=== PATIENT | male | born 1970 | race Asian ===

== ENCOUNTER → 2024-09-28 | Outpatient (CLI) | payer BC, SELFPAY ==
[2024-09-28 15:36] LABS: Absolute Neutrophil Count 4.7 X10^3/uL (2.0-7.7); Basophil# 0.04 X10^3/uL; Basophil% 0.6 % (0-1); Eosinophil# 0.16 X10^3/uL; Eosinophils% 2.5 % (0-5); Hemoglobin 17.4 g/dL (13.0-16.5); Mean Corp Hgb Conc 35.5 g/dL (32-36); Mean Corpuscular Hgb 30.9 pg (27.0-32.0); Mean Platelet Vol. 9.5 fl (6.2-12.0); Monocyte# 0.61 X10^3/uL; Monocyte% 9.5 % (0-10); NRBC Flagged by Analyzer 0 % (0-5); Neutrophil % 72.9 % (47-70); Platelet Count 211 K/mm3 (150-450); RBC Distribution Width CV 12.2 % (11.6-14.6); RBC Distribution Width SD 38.4 fl (35.1-43.9); Red Blood Count 5.63 M/mm3 (4.6-6.2); White Blood Count 6.4 K/mm3 (4.4-11.0)
[2024-09-28 16:02] LABS: ALB/GLOB Ratio 1.7 RATIO (0.9-2.4); AST(SGOT) 43 U/L (<=37); Alanine Aminotransfer ALT/SGPT 52 U/L (<=46); Albumin, Serum 4.7 g/dL (3.5-5.0); Alkaline Phosphatase 71 U/L (40-129); Anion Gap 11 (5-15); BUN 18 mg/dL (4-19); BUN/Creat Ratio 16.2 RATIO (10-20); Calcium,Total 9.6 mg/dL (7.6-11.0); Carbon Dioxide 25.8 mmol/L (21.0-32.0); Chloride 101 mmol/L (98-108); Cholesterol 174 mg/dL (<=200); Creatinine, Serum 1.08 mg/dL (0.70-1.20); EST Glomerular Filtration Rate 82 (>60); Globulin 2.7 g/dL (2.2-4.2); Glucose 135 mg/dL (70-99); High Density Lipoprotein 46 mg/dL; Low Density Lipoprotein Calc. 95 mg/dL; Magnesium 2.3 mg/dL (1.5-2.2); Potassium 3.4 mmol/L (3.3-5.1); Protein, Total 7.4 g/dL (5.9-8.4); Sodium Level 138 mmol/L (133-145); Total Bilirubin 0.74 mg/dL (0.00-1.30); Triglycerides 165 mg/dL; Very Low Density Lipoprotein 33 mg/dL (5-40); cholesterol:hdl ratio screen 3.78
[2024-10-02 16:42] LABS: Ferritin 486 ng/mL (37-417); Hepatitis B Surface Antigen Nonreactive (Nonreactive); Hepatitis C Antibody Nonreactive (Nonreactive)
[2024-10-02 16:53] LABS: Iron 139 ug/dL (65-175); Iron Binding Capacity,Total 261 ug/dL (250-450); Iron Binding Capacity,Unsat 122 ug/dL (228-428)
== END | disposition home or self-care (01) ==
LOC: MFPLAB 12:20
PROVIDERS: PCP Family Medicine; Referring Provider Family Medicine; Visit Provider Family Medicine
DX: E78.5 Hyperlipidemia, unspecified (principal); I10 Essential (primary) hypertension
CPT/HCPCS: 36415; 80053; 80061; 82728; 83540; 83550; 83735; 84443; 85025; 86803; 87340

== ENCOUNTER → 2024-10-09 | Outpatient (CLI) | payer BC, SELFPAY ==
[2024-10-09 14:07] LABS: Hepatitis B Surface Antibody REAC
[2024-10-11 05:08] LABS: Transferrin 191 mg/dL (177-329)
== END | disposition home or self-care (01) ==
LOC: MFPLAB 11:10
PROVIDERS: PCP Family Medicine; Referring Provider Family Medicine; Visit Provider Family Medicine
DX: R79.89 Other specified abnormal findings of blood chemistry (principal); R71.8 Other abnormality of red blood cells
CPT/HCPCS: 36415; 84466; 86706

== ENCOUNTER → 2024-12-21 | Outpatient (CLI) | payer BC, SELFPAY ==
--- NOTE | 2024-12-21 08:41 | US_ITS ---
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 Gallbladder: No stones, sludge, wall thickening or tenderness. Common bile duct: Normal measuring 4.1 mm . Pancreas: Obscured by bowel gas. Kidneys: The right kidney measures 9.7 cm 4 cm 4 cm. Renal parenchymal thickness and echotexture is are preserved. Renal cortex measures 1.1 cm the left kidney measures 11.8 cm 4.3 cm 5.2 cm. Renal parenchymal thicknesses and echotextures are preserved. No hydronephrosis. The left renal cortex measures 1.3 cm. Spleen: Normal in size and echotexture measuring it measures 11.2 cm 3.3 cm 3.5 cm. Aorta: Visualized abdominal aorta is of normal size. IVC: Visualized inferior vena cava is unremarkable. Peritoneal Findings: No ascites identified. US/Abdomen Complete IMPRESSION: NORMAL ABDOMINAL ULTRASOUND. Reading Location: [id number]
--- OUTSIDE RECORDS SUMMARY | 2024-12-21 09:08 | XMS RPT_ITS | CCD ---
Author Organization [facility]Sy[facility] Care Team Providers Care It Service Technician Name Role Phone Angel WHITTEN, Dr. Ernesto Calle Primary Care Provider Angel WHITTEN, Dr. Ernesto Calle Attending Provider Angel WHITTEN, Dr. Ernesto Calle Referring Provider Ernesto Ortiz Primary Care Unavailable Ernesto Ortiz Referring Unavailable Ernesto Ortiz Attending Unavailable Ernesto Ortiz Referring Unavailable Ernesto Ortiz Attending Unavailable Ernesto Ortiz Primary Care Unavailable Problems Problem Classification Problem Date Documented Da te Episodic/Chronic Disorders of lipid metabolism (1 source) Hyperlipidemia, unspecified; Translations: [Hyperlipidemia, unspecified] Onset: 10-02-2024 Chronic Other screening for suspected conditions (not mental disorders or infectious disease) (1 source) Other specified abnormal findings of blood chemistry; Translations: [Other specified abnormal findings of blood chemistry] Onset: 10-13-2024 Episodic Results Test Name Value Interpretation Reference Range Facility Transferrinon 10-11-2024 Transferrin [Mass/Vol] 191 mg/dL Normal 177-[address] [facility] Comment on above: Result Comment: Perf ormed at: CB - [facility] [address] [id number] Web Analytics Developer: Shashank Sanchez PhD, Phone: [phone] Performed By: #### L 790.0699, N394.1887, F904.0861, I343.8685, K564.2128 #### [facility] [place], [address] Hepatitis B Surface Antibody on 10-09-2024 HEP B Surf Ab REAC Normal [facility] Comment on above: Result Comment: <8.5 mIU/mL: Non-Reactive 8.5<= x <11.5 mIU/mL: Indeterminate >=11.5 mIU/mL: Reactive Non Reactive: Inconsistent with immunity less than <10 mIU/mL Reactive: Consistent with immunity greater than or equal to 10 mIU/mL Performed By: #### L 3890.6202 #### [facility] [address] [place], [address] Serum hepatitis B virus surf agatha antibody detectionOrdered By: Ernesto Ortiz on 10-09-2024 HBV surface Ab Ql (S) REAC [facility] Comment on above: <8.5 mIU/mL: Non-Nelson ctive8.5<= x <11.5 mIU/mL: Indeterminate>=11.5 mIU/mL: Reactive Non Reactive: Inconsistent with immunity less than <10 mIU/mL Reactive: Consistent with immunity greater than or equal to 10 mIU/mL TransferrinOrdered By: Ernesto Ortiz on 10-09-2024 Transferrin [Mass/Vol] 191 mg/dL 177-[address] [facility] Comment on above: Performed at: [facility] [place] [id number] Director: Shashank Sanchez PhD, Phone: [phone] Ferritinon 10-02-2024 Ferritin [Mass/Vol] 486 ng/mL High 37-417 [facility] Comment on above: Order Comment: ALPA Calle ADD RYLEE KING IBC SERENA TO BLOOD DRAWN 09/28/24 PER Order Date: 08/08/24 Order Info: [id number] - CMP Order Info: [id number] - LIPID Order Info: [id number] - MG Order Info: [id number] - TSH Performed By: #### L 503.6550, L3890.6103, L3890.630, L503.6082 #### [facility] [address], [place], [id number] Hepatitis C Antibodyon 10-02 Hepatitis C Ab Non-Reactive Normal Nonreactive [facility] Comment on above: Order Comment: ALPA Calle ADD HEBSAG HECAB IBC SERENA TO BLOOD DRAWN 09/28/24 PER Order Date: 08/08/24 Order Info: 86-1 - CMP Order Info: [id number] - LIPID Order Info: [id number] - MG Order Info: [id number] - TSH Result Comment: Reac tive: Presumptive evidence of antibodies to HCV. Follow CDC recommendations for supplemental testing. Non-Reactive: Antibodies to HCV were not detected; does not exclude the possibility of exposure to HCV Reactive Results are presumptive evidence of antibodies to HCV. Follow CDC recommendations for supplemental testing. Order confirmation testing: HCV Quant by PCR testing - HCVPCR #[id number] Non Reactive: < 0.8 Equivocal: >/= 0.8 to < 1.0 Reactive: >/= 1.0 The [facility] [place]NOTE 2] requires that a reactive/equivocal HCV antibody result be sent out for confirmation. HCV Quant by PCR testing. Performed By: #### L 503.6550, L3890.6102, L3890.6301, L503.6030 #### [facility] [address] [place], [place], [id number] Iron+Iron Binding Capacityon 10-02-2024 Iron [Mass/Vol] 139 ug/dL Normal 65-175 [facility] Comment on above: Order Comment: [facility]OD [facility]RAWN 09/28/24 PER Order Date: 08/08/24 Order Info: [id number]- - CMP Order Info: - LIPID Order Info: [id number] - MG Order Info: [id number] - TSH Performed By: #### L 503.6550, L3890.6102, L3890.6301, L503.6030 #### [facility] [address] [place], [place], [id number] IRON SATURATION 53.0 Normal 9-55 [facility] Comment on above: Order Comment: ALPA Calle ADD HEBSAG HECAB IBC SERENA TO BLOOD DRAWN 09/28/24 PER Order Date: 08/08/24 Order Info: [id number] - CMP Order Info: [id number] - LIPID Order Info: [id number] - MG Order Info: [id number] - TSH Performed By: #### L 503.6550, L3890.6102, L3890.6301, L503.6030 #### [facility] [address] [place], [address] TIBC 261 ug/dL Normal 250-450 [facility] Comment on above: Order Comment: ALPA Calle ADD HEBSAG HECAB IBC SERENA TO BLOOD DRAWN 09/28/24 PER Order Date: 08/08/24 Order Info: [id number] - CMP Order Info: [id number] - LIPID Order Info: [id number] - MG Order Info: [id number] - TSH Performed By: #### L 503.6550, L3890.6102, L3890.6301, L503.6030 #### [facility] [address] [place], [address] UIBC 122 ug/dL Low 228-428 [facility] Comment on above: Order Comment: ALPA Calle ADD HEBSAG HECAB IBC SERENA TO BLOOD DRAWN 09/28/24 PER Order Date: 08/08/24 Order Info: [id number] - CMP Order Info: - LIPID Order Info: [id number] - MG Order Info: [id number] - TSH Performed By: #### L 503.6550, L3890.6102, L3890.6301, L503.6030 #### [facility] [address] [place], [address] L3890.6102on 10-02-2024 HEP B Surf Ag Non-Reactive Normal Nonreactive [facility] Comment on above: Order Comment: ALPA Calle ADD HEBSAG HECAB IBC SERENA TO BLOOD DRAWN 09/28/24 PER Order Date: 08/08/24 Order Info: [id number]- - CMP Order Info: [id number] - LIPID Order Info: [id number] - MG Order Info: [id number] - TSH Result Comment: Reac tive: Presumptive evidence of HBV. Repeatedly reactive samples must be confirmed using a neutralization test ([employer] HBsAg Confirmatory Test) Non-Reactive: HBsAg not detected; does not exclude the possibility of exposure to HBV Performed By: #### L 503.6579, L3890.6102, L3890.6301, L503.6041 #### [facility] [address] [place], [address] Absolute lymphocyte countOrd ered By: Ernesto Ortiz on 09-28-2024 Lymphocytes Auto (Unsp spec) [#/Vol] 0.90 10*3/uL 0.83-4.51 [facility] Absolute neutrophil countOrd ered By: Ernesto Ortiz on 09-28-2024 Neutrophils (Bld) [#/Vol] 4.7 10*3/uL 2.0-7.7 [facility] Anion gap in Serum or Plasma Ordered By: Ernesto Ortiz on 09-28-2024 Anion gap [Moles/Vol] 11 mmol/L 5-15 [facility] Automated lymphocyte count a s percentage of total leukocytesOrdered By: Ernesto Ortiz on 09-28-2024 Lymphocytes/100 WBC Auto (Unsp spec) 14.0 % Low 19-41 [facility] BUN/creatinine ratioOrdered By: Ernesto Ortiz on 09-28-2024 Urea nitrogen/Creatinine [Mass ratio] 16.2 mg/mg 10-20 [facility] Basophil percentageOrdered B y: Ernesto Ortiz on 09-28-2024 Basophils/100 WBC (Bld) 0.6 % 0-1 [facility] Bilirubin, totalOrdered By: Ernesto Ortiz on 09-28-2024 Bilirubin [Mass/Vol] 0.74 mg/dL 0.00-1.30 [facility] CBC W/Diff, Automatedon 09-13 Absolute Lymph 0.90 X10 3/uL Normal 0.83-4.51 [facility] Comment on above: Order Comment: Order Date: 08/08/24 Order Info: [id number] - CBCD Performed By: #### L 501.9344, L500.4100, L500.4050, L501.5200, L100.0100 #### [facility] [address] [place], [address] Absolute Neut 4.7 X10 3/uL Normal 2.0-7.7 [facility] Comment on above: Order Comment: Order Date: 08/08/24 Order Info: [id number] - CBCD Performed By: #### L 501.9520, L500.4100, L500.4050, L501.5200, L100.0100 #### [facility] [address] [place], [address] Basophils/100 WBC (Bld) 0.6 % Normal 0-1 [facility] Comment on above: Order Comment: Order Date: 08/08/24 Order Info: [id number] - CBCD Performed By: #### L 501.9520, L500.4100, L500.4050, L501.5200, L100.0100 #### [facility] [address] [place], [address] Eosinophils/100 WBC (Bld) 2.5 % Normal 0-5 [facility] Comment on above: Order Comment: Order Date: 08/08/24 Order Info: 0184-1 - CBCD Performed By: #### L 501.9520, L500.4100, L500.4050, L501.5200, L100.0100 #### [facility] [address] [place], [address] Erythrocyte distribution width (RBC) [Ratio] 12.2 % Normal 11.6-14.6 [facility] Comment on above: Order Comment: Order Date: 08/08/24 Order Info: 0184-1 - CBCD Performed By: #### L 501.9520, L500.4100, L500.4050, L501.5200, L100.0100 #### [facility] [address] [place], [address] Hematocrit (Bld) [Volume fraction] 49.0 % Normal 40-54 [facility] Comment on above: Order Comment: Order Date: 08/08/24 Order Info: 0184-1 - CBCD Performed By: #### L 501.9520, L500.4100, L500.4050, L501.5200, L100.0100 #### [facility] [address] [place], [address] Hemoglobin (Bld) [Mass/Vol] 17.4 g/dL High 13.0-16.5 [facility] Comment on above: Order Comment: Order Date: 08/08/24 Order Info: 0184-1 - CBCD Performed By: #### L 501.9520, L500.4100, L500.4050, L501.5200, L100.0100 #### [facility] [address] [place], [address] IG% 0.500 Normal 0.0-0.9 [facility] Comment on above: Order Comment: Order Date: 08/08/24 Order Info: 0184-1 - CBCD Result Comment: IG% - Immature Granulocytes (promyelocytes, myelocytes and metamyelocytes) > 1% indicates that a LEFT SHIFT is Present. Performed By: #### L 501.9520, L500.4100, L500.4050, L501.5200, L100.0100 #### [facility] [address] [place], [address] Lymphocytes/100 WBC (Bld) 14.0 % Low 19-41 [facility] Comment on above: Order Comment: Order Date: 08/08/24 Order Info: 0184-1 - CBCD Performed By: #### L 501.9520, L500.4100, L500.4050, L501.5200, L100.0100 #### [facility] [address] [place], [address] MCH (RBC) [Entitic mass] 30.9 pg Normal 27.0-32.0 [facility] Comment on above: Order Comment: Order Date: 08/08/24 Order Info: 0184-1 - CBCD Performed By: #### L 501.9520, L500.4100, L500.4050, L501.5200, L100.0100 #### [facility] [address] [place], [address] MCHC (RBC) [Mass/Vol] 35.5 g/dL Normal 32-36 [facility] Comment on above: Order Comment: Order Date: 08/08/24 Order Info: 0184-1 - CBCD Performed By: #### L 501.9520, L500.4100, L500.4050, L501.5200, L100.0100 #### [facility] [address] [place], [address] MCV (RBC) [Entitic vol] 87.0 fL Normal 80-94 [facility] Comment on above: Order Comment: Order Date: 08/08/24 Order Info: 0184-1 - CBCD Performed By: #### L 501.9520, L500.4100, L500.4050, L501.5200, L100.0100 #### [facility] [address] [place], [address] Monocytes/100 WBC (Bld) 9.5 % Normal 0-10 [facility] Comment on above: Order Comment: Order Date: 08/08/24 Order Info: 0184-1 - CBCD Performed By: #### L 501.9520, L500.4100, L500.4050, L501.5200, L100.0100 #### [facility] [address] [place], [address] Neutrophils/100 WBC (Bld) 72.9 % High 47-70 [facility] Comment on above: Order Comment: Order Date: 08/08/24 Order Info: 0184-1 - CBCD Performed By: #### L 501.9520, L500.4100, L500.4050, L501.5200, L100.0100 #### [facility] [address] [place], [address] Nucleated RBC (Bld) [#/Vol] 0 10*3/uL Normal 0-5 [facility] Comment on above: Order Comment: Order Date: 08/08/24 Order Info: 0184-1 - CBCD Performed By: #### L 501.9520, L500.4100, L500.4050, L501.5200, L100.0100 #### [facility] [address] [place], [address] Platelet mean volume (Bld) [Entitic vol] 9.5 fL Normal 6.2-12.0 [facility] Comment on above: Order Comment: Order Date: 08/08/24 Order Info: 0184-1 - CBCD Performed By: #### L 501.9520, L500.4100, L500.4050, L501.5200, L100.0100 #### [facility] [address] [place], [address] Platelets (Bld) [#/Vol] 211 10*3/uL Normal 150-450 [facility] Comment on above: Order Comment: Order Date: 08/08/24 Order Info: 0184- - CBCD Performed By: #### L 501.9520, L500.4100, L500.4050, L501.5200, L100.0100 #### [facility] [address] [place], [address] RBC (Bld) [#/Vol] 5.63 10*6/uL Normal 4.6-6.2 [facility] Comment on above: Order Comment: Order Date: 08/08/24 Order Info: 0184-1 - CBCD Performed By: #### L 501.9520, L500.4100, L500.4050, L501.5200, L100.0100 #### [facility] [address] [place], [place], [id number] RDW SD 38.4 fl Normal 35.1-43.9 [facility] Comment on above: Order Comment: Order Date: 08/08/24 Order Info: 0184-1 - CBCD Performed By: #### L 501.9520, L500.4100, L500.4050, L501.5200, L100.0100 #### [facility] [address] [place], [place], [address] WBC (Bld) [#/Vol] 6.4 10*3/uL Normal 4.4-11.[address] [facility] Comment on above: Order Comment: Order Date: 08/08/24 Order Info: 0184-1 - CBCD Performed By: #### L 501.9520, L500.4100, L500.4050, L501.5200, L100.0100 #### [facility] [address] [place], [place], [id number] Calculated very low density lipoprotein (VLDL) cholesterol measurementOrdered By: Ernesto Ortiz on 09-28-2024 Calculated very low density lipoprotein (VLDL) cholesterol measurement 33 mg/dL 5-40 [facility] Carbon dioxide, total [Moles /volume] in Central venous bloodOrdered By: Ernesto Ortiz on 09-28-2024 CO2 [Moles/Vol] 25.8 mmol/L 21.0-32.0 [facility] Chloride assayOrdered By: Cara Ortiz on 09-28-2024 Chloride [Moles/Vol] 101 mmol/L 98-108 [facility] Comprehensive Metabolic Prof ilon 09-28-2024 Albumin [Mass/Vol] 4.7 g/dL Normal 3.5-5.[address] [facility] Comment on above: Order Comment: Order Date: 08/08/24 Order Info: [id number] - CMP Order Info: [id number] - LIPID Order Info: [id number] - MG Order Info: [id number] - TSH Performed By: #### L 501.9520, L500.4100, L500.4050, L501.5200, L100.0100 #### [facility] [address] [place], [address] Albumin/Globulin [Mass ratio] 1.7 {ratio} Normal 0.9-2.4 [facility] Comment on above: Order Comment: Order Date: 08/08/24 Order Info: [id number] - CMP Order Info: [id number] - LIPID Order Info: [id number] - MG Order Info: 3016-3 - TSH Performed By: #### L 501.9520, L500.4100, L500.4050, L501.5200, L100.0100 #### [facility] [address] [place], [address] ALK PHOS 71 U/L Normal 40-129 [facility] Comment on above: Order Comment: Order Date: 08/08/24 Order Info: [id number] - CMP Order Info: [id number] - LIPID Order Info: [id number] - MG Order Info: 3016-3 - TSH Performed By: #### L 501.9520, L500.4100, L500.4050, L501.5200, L100.0100 #### [facility] [address] [place], [address] ALT [Catalytic activity/Vol] 52 U/L High <=46 [facility] Comment on above: Order Comment: Order Date: 08/08/24 Order Info: [id number] - CMP Order Info: [id number] - LIPID Order Info: [id number] - MG Order Info: 3016-3 - TSH Performed By: #### L 501.9520, L500.4100, L500.4050, L501.5200, L100.0100 #### [facility] [address] [place], [address] AST [Catalytic activity/Vol] 43 U/L High <=37 [facility] Comment on above: Order Comment: Order Date: 08/08/24 Order Info: [id number] - CMP Order Info: [id number] - LIPID Order Info: [id number] - MG Order Info: 3015-3 - TSH Performed By: #### L 501.9520, L500.4100, L500.4050, L501.5200, L100.0100 #### [facility] [address] [place], [address] Bilirubin [Mass/Vol] 0.74 mg/dL Normal 0.00-1.30 [facility] Comment on above: Order Comment: Order Date: 08/08/24 Order Info: [id number] - CMP Order Info: [id number] - LIPID Order Info: [id number] - MG Order Info: 3 - TSH Performed By: #### L 501.9520, L500.4100, L500.4050, L501.5200, L100.0100 #### [facility] [address] [place], [address] BUN/CRE 16.2 RATIO Normal 10-20 [facility] Comment on above: Order Comment: Order Date: 08/08/24 Order Info: 0786- - CMP Order Info: [id number] - LIPID Order Info: [id number] - MG Order Info: 3 - TSH Performed By: #### L 501.9520, L500.4100, L500.4050, L501.5200, L100.0100 #### [facility] [address] [place], [address] Calcium [Mass/Vol] 9.6 mg/dL Normal 7.6-11.[address] [facility] Comment on above: Order Comment: Order Date: 08/08/24 Order Info: [id number] - CMP Order Info: [id number] - LIPID Order Info: [id number] - MG Order Info: 3015-3 - TSH Performed By: #### L 501.9520, L500.4100, L500.4050, L501.5200, L100.0100 #### [facility] [address] [place], [place], [address] Chloride [Moles/Vol] 101 mmol/L Normal 98-108 [facility] Comment on above: Order Comment: Order Date: 08/08/24 Order Info: 0786-1 - CMP Order Info: [id number] - LIPID Order Info: [id number] - MG Order Info: 3016-3 - TSH Performed By: #### L 501.9520, L500.4100, L500.4050, L501.5200, L100.0100 #### [facility] [address] [place], [address] CO2 [Moles/Vol] 25.8 mmol/L Normal 21.0-32.0 [facility] Comment on above: Order Comment: Order Date: 08/08/24 Order Info: 785-1 - CMP Order Info: [id number] - LIPID Order Info: [id number] - MG Order Info: 3016-3 - TSH Performed By: #### L 501.9520, L500.4100, L500.4050, L501.5200, L100.0100 #### [facility] [address] [place], [place], [id number] Creatinine [Mass/Vol] 1.08 mg/dL Normal 0.70-1.20 [facility] Comment on above: Order Comment: Order Date: 08/08/24 Order Info: 0786-1 - CMP Order Info: [id number] - LIPID Order Info: [id number] - MG Order Info: 3016-3 - TSH Performed By: #### L 501.9520, L500.4100, L500.4050, L501.5200, L100.0100 #### [facility] [address] [place], [address] GAP 11 Normal 5-15 [facility] Comment on above: Order Comment: Order Date: 08/08/24 Order Info: 0786-1 - CMP Order Info: [id number] - LIPID Order Info: [id number] - MG Order Info: 3016-3 - TSH Performed By: #### L 501.9520, L500.4100, L500.4050, L501.5200, L100.0100 #### [facility] [address] [place], [address] GFR/1.73 sq M.predicted among non-blacks MDRD (S/P/Bld) [Vol rate/Area] 82 mL/min/{1.73_m2} Normal >[address] [facility] Comment on above: Order Comment: Order Date: 08/08/24 Order Info: [id number] - CMP Order Info: [id number] - LIPID Order Info: [id number] - MG Order Info: 3016-3 - TSH Result Comment: mL/m in/1.73m2 CKD-EPI Creatinine Equation (2020) Performed By: #### L 501.9520, L500.4100, L500.4050, L501.5200, L100.0100 #### [facility] [address] [place], [address] Globulin (S) [Mass/Vol] 2.7 g/dL Normal 2.2-4.2 [facility] Comment on above: Order Comment: Order Date: 08/08/24 Order Info: 0786- - CMP Order Info: [id number] - LIPID Order Info: [id number] - MG Order Info: 3016-3 - TSH Performed By: #### L 501.9520, L500.4100, L500.4050, L501.5200, L100.0100 #### [facility] [address] [place], [address] Glucose [Mass/Vol] 135 mg/dL High 70-[address] [facility] Comment on above: Order Comment: Order Date: 08/08/24 Order Info: 0786-1 - CMP Order Info: [id number] - LIPID Order Info: [id number] - MG Order Info: 3016-3 - TSH Performed By: #### L 501.9520, L500.4100, L500.4050, L501.5200, L100.0100 #### [facility] [address] [place], [address] Potassium [Moles/Vol] 3.4 mmol/L Normal 3.3-5.1 [facility] Comment on above: Order Comment: Order Date: 08/08/24 Order Info: 0786-1 - CMP Order Info: [id number] - LIPID Order Info: [id number] - MG Order Info: 3016-3 - TSH Performed By: #### L 501.9520, L500.4100, L500.4050, L501.5200, L100.0100 #### [facility] [address] [place], [address] Sodium [Moles/Vol] 138 mmol/L Normal 133-[address] [facility] Comment on above: Order Comment: Order Date: 08/08/24 Order Info: 07-1 - CMP Order Info: [id number] - LIPID Order Info: [id number] - MG Order Info: 3016-3 - TSH Performed By: #### L 501.9520, L500.4100, L500.4050, L501.5200, L100.0100 #### [facility] [address] [place], [address] T PROT 7.4 g/dL Normal 5.9-8.4 [facility] Comment on above: Order Comment: Order Date: 08/08/24 Order Info: [id number] - CMP Order Info: [id number] - LIPID Order Info: [id number] - MG Order Info: 3016-3 - TSH Performed By: #### L 501.9520, L500.4100, L500.4050, L501.5200, L100.0100 #### [facility] [address] [place], [address] Urea nitrogen [Mass/Vol] 18 mg/dL Normal 4-19 [facility] Comment on above: Order Comment: Order Date: 08/08/24 Order Info: [id number] - CMP Order Info: [id number] - LIPID Order Info: [id number] - MG Order Info: 3016-3 - TSH Performed By: #### L 501.9520, L500.4100, L500.4050, L501.5200, L100.0100 #### [facility] [address] [place], [address] Eosinophil percentageOrdered By: Ernesto Ortiz on 09-28-2024 Eosinophils/100 WBC (Bld) 2.5 % 0-5 [facility] Erythrocyte distribution wid th ratioOrdered By: Ernesto Ortiz on 09-28-2024 Erythrocyte distribution width (RBC) [Ratio] 12.2 % 11.6-14.6 [facility] Erythrocyte distribution wid th standard deviationOrdered By: Ernesto Ortiz on 09-28-2024 Erythrocyte distribution width (RBC) [Ratio] 38.4 fl 35.1-43.9 [facility] Glomerular filtration rate ( GFR) estimation/1.73 sq m using serum, plasma, or whole bOrdered By: Ernesto Ortiz on 09-28-2024 GFR/1.73 sq M.predicted among non-blacks MDRD (S/P/Bld) [Vol rate/Area] 82 mL/min/{1.73_m2} >[address] [facility] Comment on above: mL/min/1.73m2 CKD-EP I Creatinine Equation (2020) Hematocrit Auto (Bld) [Volum e fraction]Ordered By: Ernesto Ortiz on 09-28-2024 Hematocrit (Bld) [Volume fraction] 49.0 % 40-54 [facility] Hemoglobin measurementOrdere d By: Ernesto Ortiz on 09-28-2024 Hemoglobin (Bld) [Mass/Vol] 17.4 g/dL High 13.0-16.5 [facility] Immature granulocytes/100 WB C Auto (Bld)Ordered By: Ernesto Ortiz on 09-28-2024 Immature granulocytes/100 WBC (Bld) 0.500 % 0.0-0.9 [facility] Comment on above: IG% - Immature Granu locytes (promyelocytes, myelocytes and metamyelocytes) > 1% indicates that a LEFT SHIFT is Present. Iron measurement (mass/mass) Ordered By: Ernesto Ortiz on 09-28-2024 Iron (Unsp spec) [Mass/Mass] 139 ug/dL 65-175 [facility] LDL calc ser/plasOrdered By: Ernesto Ortiz on 09-28-2024 Cholesterol in LDL [Mass/Vol] 95 mg/dL [facility] Comment on above: Rgcstcnnwo=841-906 m g/dL & Higher Jzfi=686 mg/dL or greater Laboratory - Chemistry and C hemistry - challengeOrdered By: Ernesto Ortiz on 09-28-2024 AST [Catalytic activity/Vol] 43 U/L High <38 [facility] Laboratory - Microbiology an d Antimicrobial susceptibilityOrdered By: Ernesto Ortiz on 09-28-2024 HBV surface Ag Ql (S) Non-Reactive Nonreactive [facility] Comment on above: Reactive: Presumptiv e evidence of HBV. Repeatedly reactive samples must be confirmed using a neutralization test ([employer] HBsAg Confirmatory Test)Non-Reactive: HBsAg not detected; does not exclude the possibility of exposure to HBV Lipid Profileon 09-28-2024 CHOL:HDL 3.78 Normal [facility] Comment on above: Order Comment: Order Date: 08/08/24 Order Info: [id number] - CMP Order Info: [id number] - LIPID Order Info: [id number] - MG Order Info: [id number] - TSH Performed By: #### L 501.9520, L500.4100, L500.4050, L501.5200, L100.0100 #### [facility] [address] [place], [address] Cholesterol [Mass/Vol] 174 mg/dL Normal <=[address] [facility] Comment on above: Order Comment: Order Date: 08/08/24 Order Info: [id number] - CMP Order Info: [id number] - LIPID Order Info: [id number] - MG Order Info: [id number] - TSH Result Comment: Chol esterol level, Desirable <200 mg/dL Borderline high cholesterol 200-239 mg/dL High cholesterol >=240 mg/dL Recommendations of the NCEP Adult Treatment Panel for the following risk-cutoff thresholds for the [place] population. Performed By: #### L 501.9520, L500.4100, L500.4050, L501.5200, L100.0100 #### [facility] [address] [place], [address] Cholesterol in HDL [Mass/Vol] 46 mg/dL Normal [facility] Comment on above: Order Comment: Order Date: 08/08/24 Order Info: [id number] - CMP Order Info: [id number] - LIPID Order Info: [id number] - MG Order Info: 301-3 - TSH Result Comment: Dina onal Cholesterol Education Program (NCEP) guidelines: <40 mg/dL: Low HDL-cholesterol (major risk factor for CHD) >= 60 mg/dL: High HDL-cholesterol (negative risk factor for CHD) HDL-cholesterol is affected by a number of factors, e.g. smoking, exercise, hormones, sex and age. Performed By: #### L 501.9520, L500.4100, L500.4050, L501.5200, L100.0100 #### [facility] [address] [place], [address] Cholesterol in LDL [Mass/Vol] 95 mg/dL Normal [facility] Comment on above: Order Comment: Order Date: 08/08/24 Order Info: [id number] - CMP Order Info: [id number] - LIPID Order Info: [id number] - MG Order Info: 301-3 - TSH Result Comment: Bord gyqmrd=435-410 mg/dL Higher Qgij=452 mg/dL or greater Performed By: #### L 501.9520, L500.4100, L500.4050, L501.5200, L100.0100 #### [facility] [address] [place], [address] Cholesterol in VLDL [Mass/Vol] 33 mg/dL Normal 5-40 [facility] Comment on above: Order Comment: Order Date: 08/08/24 Order Info: [id number] - CMP Order Info: [id number] - LIPID Order Info: [id number] - MG Order Info: 301-3 - TSH Performed By: #### L 501.9520, L500.4100, L500.4050, L501.5200, L100.0100 #### [facility] [address] [place], [address] Triglyceride [Mass/Vol] 165 mg/dL Normal [facility] Comment on above: Order Comment: Order Date: 08/08/24 Order Info: [id number] - CMP Order Info: [id number] - LIPID Order Info: [id number] - MG Order Info: [id number] - TSH Result Comment: The drugs N-Acetylcysteine and Metamizole may falsely depress this assay. Normal range: <150 mg/dL Borderline High: 150-199 mg/dL High: 200-499 mg/dL Very High: >500 mg/dL Performed By: #### L 501.9520, L500.4100, L500.4050, L501.5200, L100.0100 #### [facility] [address] [place], [address] MCV (mean corpuscular volume ) determinationOrdered By: Ernesto Ortiz on 09-28-2024 MCV (RBC) [Entitic vol] 87.0 fL 80-94 [facility] Magnesiumon 09-28-2024 Magnesium [Mass/Vol] 2.3 mg/dL High 1.5-2.2 [facility] Comment on above: Order Comment: Order Date: 08/08/24 Order Info: [id number] - CMP Order Info: [id number] - LIPID Order Info: [id number] - MG Order Info: [id number] - TSH Performed By: #### L 501.9520, L500.4100, L500.4050, L501.5200, L100.0100 #### [facility] [address] [place], [address] Magnesium measurement (mass/ volume)Ordered By: Ernesto Ortiz on 09-28-2024 Magnesium (Unsp spec) [Mass/Vol] 2.3 mg/dL High 1.5-2.2 [facility] Mean corpuscular hemoglobin (MCH) determinationOrdered By: Ernesto Ortiz on 09-28-2024 MCH (RBC) [Entitic mass] 30.9 pg 27.0-32.0 [facility] Mean corpuscular hemoglobin concentration (MCHC) determinationOrdered By: Ernesto Ortiz on 09-28-2024 MCHC (RBC) [Mass/Vol] 35.5 g/dL 32-36 [facility] Mean platelet volume determi nationOrdered By: Ernesto Ortiz on 09-28-2024 Platelet mean volume (Bld) [Entitic vol] 9.5 fL 6.2-12.0 [facility] Monocyte percentageOrdered B y: Ernesto Ortiz on 09-28-2024 Monocytes/100 WBC (Bld) 9.5 % 0-10 [facility] Neutrophil percentageOrdered By: Ernesto Ortiz on 09-28-2024 Neutrophils/100 WBC (Bld) 72.9 % High 47-70 [facility] No Panel InformationOrdered By: Ernesto Ortiz on 09-28-2024 Unsaturated Iron Binding Capacity 122 ug/dL Low 228-428 [facility] Nucleated red blood cell per centageOrdered By: Ernesto Ortiz on 09-28-2024 Nucleated RBC/100 WBC (Bld) [Ratio] 0 % 0-5 [facility] Platelet countOrdered By: Cara Ortiz on 09-28-2024 Platelets (Bld) [#/Vol] 211 10*3/uL 150-450 [facility] Potassium measurement (mass/ volume)Ordered By: Ernesto Ortiz on 09-28-2024 Potassium (Unsp spec) [Mass/Vol] 3.4 mmol/L 3.3-5.1 [facility] RBC Auto (Bld) [#/Vol]Ordere d By: Ernesto Ortiz on 09-28-2024 RBC (Bld) [#/Vol] 5.63 10*6/uL 4.6-6.2 [facility] Screening total cholesterol/ high density lipoprotein (HDL) cholesterol ratioOrdered By: Ernesto Ortiz on 09-28-2024 Cholesterol.total/Cholest william in HDL [Mass ratio] 3.78 {ratio} [facility] Serum creatinine measurement (mass/volume)Ordered By: Ernesto Ortiz on 09-28-2024 Creatinine [Mass/Vol] 1.08 mg/dL 0.70-1.20 [facility] Serum globulin measurementOr dered By: Ernesto Ortiz on 09-28-2024 Globulin (S) [Mass/Vol] 2.7 g/dL 2.2-4.2 [facility] Serum glucose measurement (m ass/volume)Ordered By: Ernesto Ortiz on 09-28-2024 Glucose [Mass/Vol] 135 mg/dL High 70-[address] [facility] Serum or plasma alanine vega otransferase (ALT) measurementOrdered By: Ernesto Ortiz on 09-28-2024 ALT [Catalytic activity/Vol] 52 U/L High <47 [facility] Serum or plasma albumin sanjay urement (mass/volume)Ordered By: Ernesto Ortiz on 09-28-2024 Albumin [Mass/Vol] 4.7 g/dL 3.5-5.[address] [facility] Serum or plasma albumin/glob ulin mass ratioOrdered By: Ernesto Ortiz on 09-28-2024 Albumin/Globulin [Mass ratio] 1.7 {ratio} 0.9-2.4 [facility] Serum or plasma alkaline jackie sphatase measurementOrdered By: Ernesto Ortiz on 09-28-2024 ALP [Catalytic activity/Vol] 71 U/L 40-129 [facility] Serum or plasma calcium sanjay urement (mass/volume)Ordered By: Ernesto Ortiz on 09-28-2024 Calcium [Mass/Vol] 9.6 mg/dL 7.6-11.[address] [facility] Serum or plasma cholesterol in HDL measurement (mass/volume)Ordered By: Ernesto Ortiz on 09-28-2024 Cholesterol in HDL [Mass/Vol] 46 mg/dL >40 [facility] Comment on above: National Cholesterol Education Program (NCEP) guidelines:<40 mg/dL: Low HDL-cholesterol (major risk factor for CHD)>= 60 mg/dL: High HDL-cholesterol (negative risk factor for CHD)HDL-cholesterol is affected by a number of factors, e.g. smoking, exercise, hormones, sex and age. Serum or plasma cholesterol measurement (mass/volume)Ordered By: Ernesto Ortiz on 09-28-2024 Cholesterol [Mass/Vol] 174 mg/dL <[address] [facility] Comment on above: Cholesterol level, D esirable <200 mg/dLBorderline high cholesterol 200-239 mg/dLHigh cholesterol >=240 mg/dLRecommendations of the NCEP Adult Treatment Panel for the following risk-cutoff thresholds for the [place] population. Serum or plasma ferritin kenyon surement (mass/volume)Ordered By: Ernesto Ortiz on 09-28-2024 Ferritin [Mass/Vol] 486 ng/mL High 37-417 [facility] Serum or plasma iron saturat ion measurement (mass fraction)Ordered By: Ernesto Ortiz on 09-28-2024 Iron saturation [Mass fraction] 53.0 % 9-55 [facility] Serum or plasma urea nitroge n measurement (mass/volume)Ordered By: Ernesto Ortiz on 09-28-2024 Urea nitrogen [Mass/Vol] 18 mg/dL 4-19 [facility] Sodium levelOrdered By: Ernesto Ortiz on 09-28-2024 Sodium [Moles/Vol] 138 mmol/L 133-[address] [facility] TSH DL <= 0.005 mIU/L QnOrde red By: Ernesto Ortiz on 09-28-2024 TSH Qn 1.640 uIU/mL 0.300-4.200 [facility] Thyroid Stim Hormone (TSH)on 09-28-2024 TSH 1.640 uIU/mL Normal 0.300-4.200 [facility] Comment on above: Order Comment: Order Date: 08/08/24 Order Info: [id number] - CMP Order Info: [id number] - LIPID Order Info: [id number] - MG Order Info: [id number] - TSH Performed By: #### L 501.9520, L500.4100, L500.4050, L501.5200, L100.0100 #### [facility] [address] [place], [address] Total proteinOrdered By: Regan Ortiz on 09-28-2024 Protein [Mass/Vol] 7.4 g/dL 5.9-8.[address] [facility] Triglycerides measurementOrd ered By: Ernesto Ortiz on 09-28-2024 Triglyceride [Mass/Vol] 165 mg/dL <199 [facility] Comment on above: The drugs N-Acetylcy steine and Metamizole may falsely depress this assay. Normal range: <150 mg/dLBorderline High: 150-199 mg/dLHigh: 200-499 mg/dLVery High: >500 mg/dL White blood cell (WBC) count Ordered By: Ernesto Ortiz on 09-28-2024 WBC (Bld) [#/Vol] 6.4 10*3/uL 4.4-11.[address] [facility] Encounters Encounter Date Encounter Type Care Provider Facility Start: 10-09-2024 End: 10-09-[address] Ernesto Ortiz MD Work Phone: [facility] Work Phone: Start: 10-09-2024 End: 10-09-[address] Ernesto Ortiz MD -Laboratory [facility] [place] Start: 10-09-2024 End: 10-09-2024 ambulatory Ernesto Ortiz Facility:[facility] Start: 09-28-2024 End: 09-28-[address] Ernesto Ortiz MD Work Phone: [facility] Work Phone: Start: 09-28-2024 End: 09-28-[address] Ernesto Ortiz MD -Laboratory [facility] [place] Start: 09-28-2024 End: 09-28-2024 ambulatory Ernesto Ortiz Facility:[facility] Procedures Date Procedure Procedure Detail Performing Clinician Start: 09-28-2024 Hep[address] C antibody measurement Dr. Ernesto Ortiz MD Work Phone: Comment on above: Reactive: Presumptiv e evidence of antibodies to HCV. Follow CDC recommendations for supplemental testing.Non-Reactive: Antibodies to HCV were not detected; does not exclude the possibility of exposure to HCVReactive Results are presumptive evidence of antibodies to HCV. Follow CDC recommendations for supplemental testing.Order confirmation testing: HCV Quant by PCR testing - HCVPCR #[id number] Non Reactive: < 0.8 Equivocal: >/= 0.8 to < 1.0 Reactive: >/= 1.0The CDC requires that a reactive/equivocal HCV antibody result be sent out for confirmation. HCV Quant by PCR testing. Start: 09-28-2024 Total iron binding c apacity measurement Dr. Ernesto Ortiz MD Work Phone: Payers Date Payer Category Payer Self-pay 2024 Unknown [id number] Unknown [id number] Unknown [id number] Social History Date Type Detail Facility Tobacco smoking stat [facility] Unknown if ever smoked [facility] Work Phone: Start: 1970 Sex Assigned At Male [facility] Evaluation note Note Date & Type Note Facility Evaluation note No assessment information availa ble [facility] Work Phone: Reason for referral (narrative) Note Date & Type Note Facility Reason for referral (narrative) No reason for referral information available [facility] Work Phone: Summary Purpose Family History No Family History Records Found Advance Directives No Advanced Directives Records Found Additional Source Comments Care Teams (unrecognized sec tion and content) Team Status: Active Member Role Status Dates Dr. Ernesto Ortiz MD Primary Care Provider Active Team Status: Inactive Member Role Status Dates Dr. Ernesto Ortiz MD Primary Care Provider Active Start: September 28, 2024 End: September 28, 2024 Dr. Ernesto Ortiz MD Attending Provider Active Start: September 28, 2024 End: September 28, 2024 Dr. Ernesto Ortiz MD Referring Provider Active Start: September 28, 2024 End: September 28, 2024 Team Status: Inactive Member Role Status Dates Dr. Ernesto Ortiz MD Primary Care Provider Active Start: October 09, 2024 End: October 09, 2024 Dr. Ernesto Ortiz MD Attending Provider Active Start: October 09, 2024 End: October 09, 2024 Dr. Ernesto Ortiz MD Referring Provider Active Start: October 09, 2024 End: October 09, 2024 Goals (unrecognized section and content) Goals may be documented in a n alternate sectionGoals may be documented in an alternate section (unrecognized sect ion and content) No Status Records Found INFORMATION SOURCE (unrecogn ized section and content) DATE CREATED AUTHOR 10/14/2024 [facility] FOR RECORDS PERTAINING TO PATIENTS WHO ARE OR HAVE BEEN ENROLLED IN A CHEMICAL DEPENDENCY/SUBSTANCEABUSE PROGRAM, SOME INFORMATION MAY BE OMITTED. This clinical summary was aggregated from multiple sources. Caution should be exercised in using it in the provision of clinical care. This summary normalizes information from multiple sources, and as a consequence, information in this document may materially change the coding, format and clinical context of patient data. In addition, data may be omitted in some cases. CLINICAL DECISIONS SHOULD BE BASED ON THE PRIMARY CLINICAL RECORDS. [facility] provides no warranty or guarantee of the accuracy or completeness of information in this document.
== END | disposition home or self-care (01) ==
PROVIDERS: PCP Family Medicine; Referring Provider Family Medicine; Visit Provider Family Medicine
DX: R79.89 Other specified abnormal findings of blood chemistry (principal)
CPT/HCPCS: 76700

== ENCOUNTER → 2024-12-31 | Outpatient (CLI) | payer BC, SELFPAY ==
[2024-12-31 12:34] LABS: Hematocrit 47.4 % (40-54); Hemoglobin 16.6 g/dL (13.0-16.5); Mean Corp Hgb Conc 35.0 g/dL (32-36); Mean Corpuscular Volume 87.0 fL (80-94); Mean Platelet Vol. 10.2 fl (6.2-12.0); Platelet Count 187 K/mm3 (150-450); RBC Distribution Width CV 11.9 % (11.6-14.6); RBC Distribution Width SD 37.5 fl (35.1-43.9); Red Blood Count 5.45 M/mm3 (4.6-6.2); White Blood Count 4.1 K/mm3 (4.4-11.0)
[2024-12-31 13:07] LABS: AST(SGOT) 24 U/L (<=37); Alanine Aminotransfer ALT/SGPT 26 U/L (<=46); Albumin, Serum 4.6 g/dL (3.5-5.0); Alkaline Phosphatase 59 U/L (40-129); Anion Gap 12 (5-15); BUN 14 mg/dL (4-19); BUN/Creat Ratio 18.8 RATIO (10-20); Calcium,Total 9.6 mg/dL (7.6-11.0); Carbon Dioxide 24.2 mmol/L (21.0-32.0); Chloride 104 mmol/L (98-108); Globulin 2.4 g/dL (2.2-4.2); Glucose 105 mg/dL (70-99); Lipase 58 U/L (13-75); Potassium 3.9 mmol/L (3.3-5.1)
== END | disposition home or self-care (01) ==
LOC: MTLAB 09:33
PROVIDERS: PCP Family Medicine; Referring Provider Family Medicine; Visit Provider Family Medicine
DX: R10.9 Unspecified abdominal pain (principal)
CPT/HCPCS: 36415; 80053; 83690; 85027